=== PATIENT | male | born 1935 | race Caucasian/White ===

== ENCOUNTER 2020-08-02 12:12 | Outpatient (CLI) | payer MEDICARE, BC, SELFPAY ==
--- NOTE | ~2020-08-02 | US_ITS ---
EXAMINATION: US aorta DATE: 08/02/2020 13:25 CDT INDICATION: Abdominal aortic aneurysm without rupture TECHNIQUE: Grayscale, color Doppler, and pulsed Doppler images of the aorta and common iliac arteries were obtained. COMPARISON: No prior studies for comparison. . FINDINGS: The proximal aorta measures 2.2 cm greatest sagittal dimension. The mid aorta measures 4.4 cm greates t sagittal dimension. The distal aorta measures 1.9 cm greatest sagittal dimension. The right common internal iliac artery measures 1.3 cm. The left common iliac artery measures 1.5 cm. IMPRESSION: 1. Infrarenal abdominal aortic aneurysm measuring 4.4 cm greatest sagittal dimension. Reviewed, dictated and finalized at location A. IMPRESSION: 1. Infrarenal abdominal aortic aneurysm measuring 4.4 cm greatest sagittal dime nsion.
== END 2020-08-02 12:13 | disposition home or self-care (01) ==
LOC: ANHIMG 12:21
PROVIDERS: PCP Internal Medicine; Visit Provider Internal Medicine
DX: I71.4 Abdominal aortic aneurysm, without rupture (principal)
CPT/HCPCS: 76775

== ENCOUNTER 2021-10-10 15:38 | Outpatient (CLI) | payer MEDICARE, BC, SELFPAY ==
[2021-10-10 16:40] LABS: Basophils Absolute Auto 0.1 K/mm3 (0.0-0.1); Basophils Percent Auto 0.5 % (0.2-1.2); Eosinophils Absolute Auto 0.2 K/mm3 (0-0.3); Eosinophils Percent Auto 1.3 % (0-4.4); Hematocrit 46.4 % (42.0-52.0); Hemoglobin 15.4 g/dL (14.0-18.0); Immature Granulocyte Absolute 0.09 K/mm3 (0.00-0.031); Immature Granulocyte Percent A 0.8 % (0-0.5); Lymphocytes Absolute Auto 2.16 K/mm3 (0.9-3.2); Lymphocytes Percent Auto 19.1 % (18.3-44.2); Mean Corpuscular HGB Conc 33.2 g/dl (32-36); Mean Corpuscular Hemoglobin 32.6 pg (26-34); Mean Corpuscular Volume 98.3 fl (80-100); Mean Platelet Volume 8.8 fl (7.4-10.4); Monocytes Absolute Auto 1.4 K/mm3 (0.1-0.6); Monocytes Percent Auto 12.3 % (2.6-8.5); Neutrophils Absolute Auto 7.5 K/mm3 (1.3-6.7); Platelet Count Result 299 k/mm3 (150-375); Red Blood Count 4.72 M/mm3 (4.6-6.20); White Blood Count 11.3 K/mm3 (4.5-10.0)
[2021-10-10 16:53] LABS: Alanine Aminotransferase 21 U/L (4-50); Albumin Level 4.8 g/dL (3.5-5.1); Alkaline Phosphatase 100 U/L (38-126); Anion Gap 12 mmol/L (8-16); Aspartate Amino Transferase 27 U/L (17-59); Bilirubin,Total 1.5 mg/dL (0.2-1.3); Blood Urea Nitrogen 18 mg/dL (9-20); Calcium 9.5 mg/dL (8.4-10.2); Carbon Dioxide 25 mmol/L (22-30); Chloride 102 mmol/L (98-107); Cholesterol 139 mg/dL (0-200); Estimated Glomerular Filt Rate 58; Glucose 119 mg/dL (65-110); HDL Direct 31 mg/dL; Magnesium 1.8 mg/dL (1.6-2.3); Potassium 4.3 mmol/L (3.4-5.0); Sodium 139 mmol/L (137-145); Triglycerides 282 mg/dL (<150)
[2021-10-10 17:03] LABS: LDL Cholesterol Direct 67 mg/dL
[2021-10-10 17:59] LABS: Folic Acid > 20.0 ng/mL (2.76->20)
== END 2021-10-10 15:39 | disposition home or self-care (01) ==
PROVIDERS: PCP Internal Medicine; Visit Provider Internal Medicine
DX: M54.9 Dorsalgia, unspecified (principal); E78.5 Hyperlipidemia, unspecified; R53.83 Other fatigue; I10 Essential (primary) hypertension
CPT/HCPCS: 36415; 80053; 80061; 82607; 82746; 83735; 84443; 85025

== ENCOUNTER → 2021-10-23 13:57 | Outpatient (CLI) | payer MEDICARE, BC, SELFPAY ==
--- NOTE | ~2021-10-23 | XR_ITS ---
EXAMINATION: XR hip LT min 2V DATE: 10/23/2021 14:27 INDICATION: Left hip pain. TECHNIQUE: 2 views of left hip were obtained. COMPARISON: None. FINDINGS: Bone alignment is normal. No fracture. There is mild left hip osteoarthritis. IMPRESSION: 1. Mild left hip osteoarthritis. Reviewed, dictated and finalized at location A. OPERATOR
--- NOTE | ~2021-10-23 | XR_ITS ---
XR lumbar spine 2-3V 10/23/2021 14:27 Indication: Low back pain Procedure: 3 views lumbar spine Comparison: No prior studies for comparison. Findings: There is disc narrowing at all lumbar levels, most advanced at L4-5. No acute fracture, sub luxation or dislocation. No spondylolisthesis. There is multilevel facet hypertrophy, most advanced a t L5-S1. There is lower abdominal aortic aneurysm measuring up to 4.7 cm. Impression: 1: Moderate lumbar spondylosis. 2: Abdominal aortic aneurysm measuring up to 4.7 cm. Reviewed, dictated and finalized at location A. DING SUPERVISOR Impression: 1: Moderate lumbar spondylosis. 2: Abdominal aortic aneurysm measuring up to 4.7 cm.
--- NOTE | ~2021-10-23 | XR_ITS ---
EXAMINATION: XR chest 2V DATE: 10/23/2021 14:27 INDICATION: Cough. TECHNIQUE: Frontal and lateral views of the chest were obtained on 3 radiographs. COMPARISON: None. FINDINGS: The lungs are hyperexpanded with lucencies, consistent with emphysema. There is mild scarri ng at the lung apices. There are interstitial opacities in the upper lobes, likely chronic. No pleura l effusion or pneumothorax. The heart size is normal. There is a chronic compression fracture in mid thoracic spine. IMPRESSION: 1. Emphysema and mild scarring. Reviewed, dictated and finalized at location A. L LITIGATION ATTORNEY
== END ==
PROVIDERS: PCP Internal Medicine; Visit Provider Internal Medicine
DX: M47.896 Other spondylosis, lumbar region (principal); I71.4 Abdominal aortic aneurysm, without rupture; J43.9 Emphysema, unspecified; M16.12 Unilateral primary osteoarthritis, left hip
CPT/HCPCS: 71046; 72100; 73502

== ENCOUNTER 2021-11-13 10:34 | Outpatient (CLI) | payer MEDICARE, BC, SELFPAY ==
--- NOTE | ~2021-11-13 | US_ITS ---
EXAMINATION: US aorta EXAM DATE: 11/13/2021 11:20 INDICATION: I71.4 - Abdominal aortic aneurysm, without rupture AAA F/U. TECHNIQUE: Multiple grayscale and Doppler images of the aorta were obtained (by a technologist who pe rformed the scan) and subsequently reviewed. Comparison is made to prior examination from 08/02/2020. FINDINGS: The abdominal aorta measures 2.7 cm proximally,, 2.5 cm mid aspect, and dilates distally to 4.5 x 3.4 x 3.8 cm (previously reported 4.4 cm). No evidence of retroperitoneal lymphadenopathy. The iliac art eries are normal in caliber. IMPRESSION: Distal abdominal aortic aneurysm unchanged, maximal dimension today obtained at 4.5 cm. Reviewed, dictated and finalized at location A. T MGR
== END 2021-11-13 10:35 | disposition home or self-care (01) ==
LOC: ANHIMG 10:39
PROVIDERS: PCP Internal Medicine; Visit Provider Internal Medicine
DX: I71.4 Abdominal aortic aneurysm, without rupture (principal)
CPT/HCPCS: 76775

== ENCOUNTER 2021-11-14 12:36 | Outpatient (CLI) | payer MEDICARE, BC, SELFPAY ==
--- NOTE | 2021-11-18 15:35 | WPDPFTINT ---
PFT Procedure Performed PFT Procedure Performed Spirometry with Pre/Post Bronchodilator Plethysmography (Lung Vol) Diffusing Cap (DLCO) Flow Vol Loop PFT Interpretation DOS: 10/14/2022 REQUESTING: Dr Ward REASON FOR TESTING: Dyspnea on exertion PULMONARY FUNCTION TESTS Test results are reliable and reproducible. Spirometry: Pre-bronchodilator FEV1 is 79%, mildly decreased, 2.31 L. FVC is normal, 92%. The FEV1/FVC ration is reduced 62% consistent with mild airflow obstruction. THe [id number]% is 46% predicted. There is no significant change after bronchodilator administration. Lung volumes: Total lung capacity is normal, 92%. RV is 113%. RV/TLC is increased 47%, consistent with air trapping. Diffusion: DLCO is 55% which is moderately reduced. DLCO/VA is 73%, increased compared to DLCO however still mildly reduced. Flow volume loop: Scooping of the expiratory limb. IMPRESSION: Mild obstructive ventilatory defect with air trapping and moderate diffusion impairment. There is no significant response to bronchodilator. Lack of response to bronchodilator should not preclude use if clinically indicated. This pattern can be seen in emphysema. Kamila Holliday MD
== END 2021-11-14 12:37 | disposition home or self-care (01) ==
PROVIDERS: PCP Internal Medicine; Visit Provider Internal Medicine
DX: R06.00 Dyspnea, unspecified (principal)
CPT/HCPCS: 94060; 94726; 94729

== ENCOUNTER 2022-01-31 12:41 | Outpatient (CLI) | payer MEDICARE, BC, SELFPAY ==
[2022-01-31 12:50] VITALS: PULSE 81; O2SAT 97
[2022-01-31 12:55] VITALS: PULSE 106; O2SAT 95
[2022-01-31 13:10] VITALS: PULSE 84; O2SAT 97
--- NOTE | 2022-01-31 13:17 | HOMEO2EVAL ---
Evaluation was performed at [facility] Home Oxygen Evaluation RC: Home Oxygen (O2) Evaluation Start: 01/31/22 13:15 Freq: Status: Active Protocol: RPE Activity Type Activity Date Activity User E-Sign Co-Sign Detail Recorded Client Recorded Date Recorded By Document 01/31/22 12:50 DJO [id number] 01/31/22 13:17 DJO Document 01/31/22 12:55 DJO [id number] 01/31/22 13:17 DJO Document 01/31/22 13:10 [email or web address] [email or web address] 01/31/22 13:17 DJO 01/31/22 01/31/22 01/31/22 12:50 12:55 13:10 Home O2 Evaluation Test Phase Resting Exercise Resting Oxygen Delivery Room Air Room Air Room Air Pulse Oximetry (90-100 %) 97 95 97 Pulse Rate (60-100 beats/min) 81 106 H 84 Activity Tolerance Good Rating of Perceived Dyspnea (PD) +2 Mild, Some Difficulty, Noticeable to the Observer Ambulation Distance (feet) 1,000 Ambulation Distance (meters) 304.78 Treatment Charges O2 Evaluation - Outpatient
--- NOTE | 2022-01-31 13:56 | ECHO_ITS ---
Patient Info Name: Sanjay Mendez Age: 86 years : 1935 Gender: Male Ht: 73 in Wt: 198 lbs BSA: 2.16 m2 HR: 85 bpm BP: 140 / 82 mmHg Technical Quality: Fair Exam Date: 01/31/2022 2:10 PM Exam Location: [facility] Pulmonary Patient Status: Outpatient Admit Date: 01/31/2022 Staff Ordering Physician: Keshav Miller MD Health Promotion Coordinator: Alicia Ku RDCS Attending Provider: Keshav Miller MD Referring Physician: Paul OLIVIER; Exam Type: CA echo doppler color flow Study Info Indications - short of breath Complete two-dimensional, color flow and Doppler transthoracic echocardiogram is performed. Summary 1. Complete two-dimensional, color flow and Doppler transthoracic echocardiogram is performed. 2. Left ventricular chamber dimension is normal. 3. Left ventricular systolic function is normal, estimated at 55-60%. 4. There is mildly increased left ventricular wall thickness. 5. The left ventricular diastolic function is grade I diastolic dysfunction. 6. There is mild aortic valve sclerosis. 7. There is mild mitral valve regurgitation. 8. There is mild to moderate tricuspid valve regurgitation. 9. Mild pulmonary hypertension, estimated pulmonary arterial systolic pressure is 45 mmHg. 10. Small atheroma in anterior and posterior aortic root. Left Ventricle Tissue doppler is not performed. Left ventricular chamber dimension is normal. Left ventricular systolic function is normal, estimated at 55-60%. There is mildly increased left ventricular wall thickness. The left ventricular diastolic function is grade I diastolic dysfunction. Right Ventricle Right ventricular chamber dimension is normal. Right ventricular systolic function is normal. Left Atria Left atrial chamber dimension is normal. Right Atria Right atrial chamber dimension is normal. Aortic Valve The aortic valve is trileaflet. There is mild aortic valve sclerosis. There is no aortic valve stenosis. There is no aortic valve regurgitation. Pulmonic Valve There is no pulmonic regurgitation. Mitral Valve There is no mitral valve stenosis. There is mild mitral valve regurgitation. Tricuspid Valve The tricuspid valve leaflets are not well visualized. There is mild to moderate tricuspid valve regurgitation. Mild pulmonary hypertension, estimated pulmonary arterial systolic pressure is 45 mmHg. Pericardium/Pleural There is no pericardial effusion. Inferior Vena Cava Normal inferior vena cava with >50% collapse upon inspiration consistent with normal right atrial pressure, 5 mmHg. Aorta Small atheroma in anterior and posterior aortic root. The aortic root size at the sinus of Valsalva is normal. Left Ventricular Outflow Tract Name Value Normal LVOT 2D LVOT Diameter 2.1 cm LVOT Doppler LVOT Peak Gradient 6 mmHg LVOT Mean Gradient 3 mmHg LVOT VTI 25 cm LVOT VTI/AV VTI Ratio 0.9 LVOT Stroke Volume 87 ml LVOT CO 17.2 l/min
== END 2022-01-31 12:42 | disposition home or self-care (01) ==
LOC: ANHPFT 12:45
PROVIDERS: PCP Internal Medicine; Visit Provider Internal Medicine Pulmonary Disease
DX: R06.02 Shortness of breath (principal); J44.9 Chronic obstructive pulmonary disease, unspecified; I34.0 Nonrheumatic mitral (valve) insufficiency; I36.1 Nonrheumatic tricuspid (valve) insufficiency; I27.20 Pulmonary hypertension, unspecified; I70.0 Atherosclerosis of aorta
CPT/HCPCS: 93306; 94618

== ENCOUNTER 2023-04-26 13:07 | Outpatient (CLI) | payer MEDICARE, BC, SELFPAY ==
--- NOTE | 2023-04-26 | ECHO_ITS ---
Patient Info Name: Nikolay Mendez Age: 87 years : 1935 Gender: Male Ht: 71 in Wt: 178 lbs BSA: 2.02 m2 HR: 93 bpm BP: 116 / 93 mmHg Heart Rhythm: Atrial Fibrillation Technical Quality: Fair Exam Date: 04/26/2023 1:41 PM Exam Location: [facility] Pulmonary Patient Status: Outpatient Admit Date: 04/26/2023 Staff Ordering Physician: Keshav Mcmahon MD Manager Servicing: Ubaldo Denson RDCS Attending Provider: Keshav Mcmahon MD Referring Physician: Salome CORTEZ; Exam Type: CA echo doppler color flow Study Info Indications - unspecified A-fib Complete two-dimensional, color flow and Doppler transthoracic echocardiogram is performed. Summary 1. Complete two-dimensional, color flow and Doppler transthoracic echocardiogram is performed. 2. Left ventricular chamber dimension is normal. 3. Left ventricular systolic function is mildly reduced, estimated at 50-55%. 4. There is moderately increased left ventricular wall thickness. 5. The left ventricular diastolic function is indeterminate. 6. Left atrial chamber dimension is severely enlarged. 7. Right atrial chamber dimension is severely enlarged. 8. There is mild aortic valve stenosis with a peak velocity of 112 cm/s, mean gradient of 3 mmHg, and aortic valve area of 1.7 cm2. 9. There is mild aortic valve calcification. 10. The mitral valve has thickened leaflets and anterior prolapse. 11. There is moderate to severe mitral valve regurgitation. 12. There is moderate tricuspid valve regurgitation. 13. Mild pulmonary hypertension, estimated pulmonary arterial systolic pressure is 37 mmHg. 14. The pericardium appears increased echogenicity of the pericardium. 15. There is small pericardial effusion. Left Ventricle Left ventricular chamber dimension is normal. Left ventricular systolic function is mildly reduced, estimated at 50-55%. There is moderately increased left ventricular wall thickness. The left ventricular diastolic function is indeterminate. Right Ventricle Right ventricular chamber dimension is normal. Right ventricular systolic function is normal. Left Atria Left atrial chamber dimension is severely enlarged. Right Atria Right atrial chamber dimension is severely enlarged. Atrial Septum Intact interatrial septum visualized by color flow imaging. Aortic Valve The aortic valve is trileaflet. There is mild aortic valve stenosis with a peak velocity of 112 cm/s, mean gradient of 3 mmHg, and aortic valve area of 1.7 cm2. There is trace aortic valve regurgitation. There is mild aortic valve calcification. Pulmonic Valve The pulmonic valve is normal. There is no pulmonic valve stenosis. There is trace pulmonic regurgitation. Mitral Valve The mitral valve has thickened leaflets and anterior prolapse. There is no mitral valve stenosis. There is moderate to severe mitral valve regurgitation. Tricuspid Valve The tricuspid valve leaflets are normal. There is no significant tricuspid valve stenosis. There is moderate tricuspid valve regurgitation. Mild pulmonary hypertension, estimated pulmonary arterial systolic pressure is 37 mmHg. Pericardium/Pleural The pericardium appears increased echogenicity of the pericardium. There is small pericardial effusion. Inferior Vena Cava Dilated inferior vena cava with <50% collapse upon inspiration consistent with elevated right atrial pressure, 15 mmHg. Aorta The aortic root size at the sinus of Valsalva is mildly dilated. Left Ventricular Outflow Tract
== END 2023-04-26 13:08 | disposition home or self-care (01) ==
LOC: ANHCARD 13:08
PROVIDERS: PCP Internal Medicine; Visit Provider Specialist
DX: I48.91 Unspecified atrial fibrillation (principal); I08.3 Combined rheumatic disorders of mitral, aortic and tricuspid valves
CPT/HCPCS: 93306

== ENCOUNTER 2024-04-25 09:35 | Emergency (ER) | payer MEDICARE, BC, SELFPAY ==
--- NOTE | ~2024-04-25 | CT_ITS ---
EXAMINATION: CT brain wo con DATE: 04/25/2024 10:53 INDICATION: Head injury TECHNIQUE: Computed tomography (CT) of the head was performed without intravenous contrast. Sagittal and coronal reconstructions were performed. The mA was adjusted according to patient size. Iterative reconstruction technique was employed. The dose-length product was 605.33 mGy-cm. COMPARISON: None FINDINGS: Small left frontal scalp hematoma. No fracture. No acute intracranial hemorrhage, acute infarction or abnormal extra axial fluid collection. Small old lacunar infarct at the anterior limb of the left in ternal capsule. There is mild scattered white matter hypoattenuation consistent with chronic small ve ssel ischemic disease. Symmetric prominence of the sulci consistent with mild to moderate age-appropr iate diffuse cerebral volume loss. Ventricles are normal and symmetric. No mass/mass effect. The orb its, paranasal sinuses and mastoid air cells are normal. IMPRESSION: 1. No fracture or acute intracranial process. 2. 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 3. Age-related changes including mild to moderate diffuse volume loss and mild scattered white matter hypoattenuation consistent with chronic small vessel ischemic disease. Reviewed, dictated and finalized at location A. IMPRESSION: 1. No fracture or acute intracranial process. 2. 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 3. Age-related changes including mild to moderate diffuse volume loss and mild scattered white matter hypoattenuation consistent with chronic small vessel isc hemic disease.
[2024-04-25 09:40] VITALS: BP 104/64; PULSE 76; RESP 18; TEMP 36.9; O2SAT 98
--- NOTE | 2024-04-25 10:21 | ED.FALL ---
HPI - Fall General Chief Complaint: Fall Stated Complaint: fall Time Seen by Provider: 04/25/24 09:42 History of Present Illness HPI Narrative: 88-year-old male present to the emergency department for evaluation after having a ground level fall while trying to situated self in the bathroom. Patient states he stumbled while trying to get position on the toilet struck his head. Patient also has a skin tear to his left elbow. Other than his head patient denies any acute pain or injury. Related Data Allergies Allergy/AdvReac Type Severity Reaction Status Date / Time Penicillins Allergy Mild unkown Verified 04/25/24 09:47 peanut Allergy Unknown unkown Verified 04/25/24 09:47 Review of Systems Review of Systems: All systems reviewed & are unremarkable except as noted in HPI and below PMFSH Past Medical History Medical History Abdominal aneurysm Allergies Arthritis IBS (irritable bowel syndrome) Surgical History Surgical History History of prostate surgery Family History Family History Father Cancer Mother Hypertension Social History Social History Smoking status: Former smoker Second hand tobacco smoke exposure: No Alcohol intake: current Substance use: unknown Exam Narrative: APPEARANCE: Well appearing, no pain, no distress, well-nourished. HEAD: normocephalic, left-sided abrasion to forehead. EYES: PERRLA/EOMI, conjunctivae clear. NOSE: Normal no drainage EARS:TMS clear with good light reflex. THROAT: Pharynx clear, no exudate. NECK: Supple. No adenopathy, no masses. RESPIRATORY: Airway patent, respirations nonlabored. Clear to auscultation bilaterally, no rales, rhonchi, wheezing. CARDIOVASCULAR: Regular rate and rhythm without murmurs rubs or gallops. ABDOMINAL: Soft, nontender, nondistended, normal bowel sounds MUSCULOSKELETAL: Moves all extremities. Strength/ROM intact, No edema, No calf tenderness. NEURO: Alert. Cranial nerves II through XII intact. Good gait. Good coordination SKIN: Skin tear to left elbow Course Vital Signs Vital signs: Vital Signs Temperature 98.4 F 04/25/24 09:40 Pulse Rate 76 04/25/24 09:40 Respiratory Rate 18 04/25/24 09:40 Blood Pressure 104/64 04/25/24 09:40 Pulse Oximetry 98 04/25/24 09:40 Temperature 98.4 F 04/25/24 09:40 Pulse Rate 76 04/25/24 09:40 Respiratory Rate 18 04/25/24 09:40 Blood Pressure 104/64 04/25/24 09:40 Pulse Oximetry 98 04/25/24 09:40 MDM - Fall MDM Narrative Medical decision making narrative: 88-year-old male presents to the emergency department for evaluation after having a ground level fall. Patient does have a superficial laceration/abrasion to the left forehead, no suture repair needed. Patient also has skin tear to the left elbow. Head CT was negative for acute intracranial abnormality. Patient denies an a other pain or injury from the fall. Differential Diagnosis Differential diagnosis: Likely other Imaging Data Radiologist's impression: Impressions Head CT 04/25/24 10:55 IMPRESSION: 1. No fracture or acute intracranial process. 2. 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 3. Age-related changes including mild to moderate diffuse volume loss and mild scattered white matter hypoattenuation consistent with chronic small vessel ischemic disease. Discharge Plan Discharge Clinical Impression: Head injury, Skin tear, Abrasion Patient Disposition: Home, Self-Care Condition: Stable Instructions: Antibiotic Form, Head Injury (ED), Abrasion (ED) Additional Instructions: Wound care as directed. Have close follow-up with your primary care physician. Prescriptions: No Action fluticasone propion-salmeterol
== END 2024-04-25 11:56 ==
PROVIDERS: Emergency Provider Emergency Medicine; PCP Internal Medicine
DX: S00.81XA Abrasion of other part of head, initial encounter (principal); S51.012A Laceration without foreign body of left elbow, initial encounter; K58.9 Irritable bowel syndrome, unspecified; M19.90 Unspecified osteoarthritis, unspecified site; Z87.891 Personal history of nicotine dependence; W18.12XA Fall from or off toilet with subsequent striking against object, initial encounter
CPT/HCPCS: 70450; 99284

== ENCOUNTER 2024-07-25 17:41 | Inpatient (IN) | payer MEDICARE, BC, SELFPAY ==
--- NOTE | ~2024-07-25 | XR_ITS ---
XR chest 1V portable Ordering provider: Yobany Chery MD History: 89 years Male with . palpitations, weakness . Comparison: October 23, 2021 FINDINGS: MEDIASTINUM: The cardiac silhouette is slightly enlarged. LUNGS: No infiltrates, effusions or pneumothorax. Prominent bronchovascular markings in the left lower lobe with haziness suggestive of atelectasis sal anum pneumonia. Underlying fibrotic changes OTHER: No free air under the diaphragm. Degenerative spine. IMPRESSION: Prominent markings in the left lower lobe with loss of silhouette of the left hemidiaphragm suggestiv e of atelectasis versus pneumonia. Follow-up advised Reviewed, dictated and finalized at location A. IMPRESSION: Prominent markings in the left lower lobe with loss of silhouette of the left h emidiaphragm suggestive of atelectasis versus pneumonia. Follow-up advised
[2024-07-25 17:44] VITALS: BP 156/83; PULSE 44; RESP 13; TEMP 36.4; O2SAT 93
--- NOTE | 2024-07-25 17:56 | ECG_ITS ---
Test Date: 2024-07-25 18:03:41 Measurements Intervals [place] Rate: 46 P: 82 MT: 209 QRS: 235 QRSD: 89 T: 88 QT: 460 QTc: 406 Interpretive Statements SINUS BRADYCARDIA WITH FIRST DEGREE AV BLOCK POSSIBLE LEFT ATRIAL ENLARGEMENT LOW QRS VOLTAGE IN LIMB LEADS ANTEROSEPTAL MYOCARDIAL INFARCTION , OF INDETERMINATE AGE BASELINE WANDER- III, V4 ABNORMAL ECG No previous ECG available for comparison Electronically Signed On 07-25-2024 19:59:31 CDT by Nhaum Monahan D.O.
--- NOTE | 2024-07-25 17:57 | ED.GENADULT ---
HPI - General Adult General Chief complaint: Unspecified Stated complaint: bradycardic Time Seen by Provider: 07/25/24 17:51 History of Present Illness HPI narrative: Patient is an 89-year-old male who presents ER with abnormal heart rate. Patient reports he was sitting at his nursing facility when they were doing vitals and found that his heart was low. He thinks he had a brief episode of shortness of breath earlier today but it passed. Does not feel lightheaded or weak. No chest pain. Patient does however look a bit fatigued and pale. Patient is on amiodarone as well as Lasix. Related Data Allergies Allergy/AdvReac Type Severity Reaction Status Date / Time Penicillins Allergy Mild unkown Verified 04/25/24 09:47 peanut Allergy Unknown unkown Verified 04/25/24 09:47 Review of Systems Review of Systems: All systems reviewed & are unremarkable except as noted in HPI and below Constitutional: Constitutional: Denies chills, Denies fever(s) and Reports weakness ENT: Reports system reviewed and no additional complaints, except as documented Cardiovascular: Cardiovascular: Reports no additional cardiovascular complaints Gastrointestinal: Gastrointestinal: Reports no additional gastrointestinal complaints [facility] Past Medical History Medical History Abdominal aneurysm Allergies Arthritis IBS (irritable bowel syndrome) Surgical History Surgical History History of prostate surgery Family History Family History Father Cancer Mother Hypertension Social History Social History Smoking status: Former smoker Second hand tobacco smoke exposure: No Alcohol intake: current Substance use: unknown Exam Narrative: GENERAL: Chronically ill and fatigued-appearing, well-nourished, and in no acute distress. HEAD: Normocephalic, atraumatic. EYES: PERRL and EOMI. Normal conjunctiva. ENT: Mucous membranes moist. CHEST: Clear to auscultation. No respiratory distress. HEART: Bradycardic and regular. Normal peripheral pulses. ABDOMEN: Soft, nontender, nondistended. EXTREMITIES: Normal range of motion. No edema. SKIN: Warm, dry, no rash. NEURO: Alert and oriented x3. PSYCH: Normal mood and affect. Course Vital Signs Vital signs: Vital Signs Temperature 36.4 C L 07/25/24 17:44 Pulse Rate 44 L 07/25/24 17:44 Respiratory Rate 13 07/25/24 17:44 Blood Pressure 156/83 H 07/25/24 17:44 Pulse Oximetry 93 07/25/24 17:44 Oxygen Delivery Room Air 07/25/24 17:44 Temperature 36.4 C L 07/25/24 17:44 Pulse Rate 44 L 07/25/24 17:44 Respiratory Rate 13 07/25/24 17:44 Blood Pressure 156/83 H 07/25/24 17:44 Pulse Oximetry 93 07/25/24 17:44 Oxygen Delivery Room Air 07/25/24 17:44 Medical Decision Making Vital Signs Vital Signs: Vital Signs Temperature 36.4 C L 07/25/24 17:44 Pulse Rate 44 L 07/25/24 17:44 Respiratory Rate 13 07/25/24 17:44 Blood Pressure 156/83 H 07/25/24 17:44 Pulse Oximetry 93 07/25/24 17:44 Oxygen Delivery Room Air 07/25/24 17:44 Temperature 36.4 C L 07/25/24 17:44 Pulse Rate 44 L 07/25/24 17:44 Respiratory Rate 13 07/25/24 17:44 Blood Pressure 156/83 H 07/25/24 17:44 Pulse Oximetry 93 07/25/24 17:44 Oxygen Delivery Room Air 07/25/24 17:44 Lab Data 07/25/24 18:28 07/25/24 18:28 Labs: Lab Results 07/25/24 Range/Units 18:28 WBC 9.0 (4.5-10.0) K/mm3 RBC 3.44 L (4.6-6.20) M/mm3 Hgb 11.7 L D (14.0-18.0) g/dL Hct 36.8 L (42.0-52.0) % MCV 107.0 H (80-100) fl MCH 34.0 (26-34) pg MCHC 31.8 L (32-36) g/dl RDW 14.9 H (11.5-14.5) % Plt Count 297 (150-375) k/mm3 MPV 8.9 (7.4-10.4) fl Immature Gran % (Auto) 1.4 H (0-0.5) % Neut % (Auto
[2024-07-25 18:38] LABS: Basophils Percent Auto 0.4 % (0.2-1.2); Eosinophils Absolute Auto 0.1 K/mm3 (0-0.3); Eosinophils Percent Auto 1.3 % (0-4.4); Hematocrit 36.8 % (42.0-52.0); Hemoglobin 11.7 g/dL (14.0-18.0); Immature Granulocyte Absolute 0.13 K/mm3 (0.00-0.031); Immature Granulocyte Percent A 1.4 % (0-0.5); Lymphocytes Absolute Auto 0.68 K/mm3 (0.9-3.2); Lymphocytes Percent Auto 7.5 % (18.3-44.2); Mean Corpuscular HGB Conc 31.8 g/dl (32-36); Mean Platelet Volume 8.9 fl (7.4-10.4); Monocytes Absolute Auto 1.4 K/mm3 (0.1-0.6); Monocytes Percent Auto 15.3 % (2.6-8.5); Neutrophils Absolute Auto 6.7 K/mm3 (1.3-6.7); Neutrophils Percent Auto 74.1 % (45.5-73.1); Platelet Count Result 297 k/mm3 (150-375); Red Blood Count 3.44 M/mm3 (4.6-6.20); Red Cell Distribution Width 14.9 % (11.5-14.5)
[2024-07-25 18:58] LABS: INR 2.6; Prothrombin Time 28.8 Seconds (11.1-14.7)
[2024-07-25 18:59] LABS: Alanine Aminotransferase 17 U/L (6-50); Albumin Level 3.4 g/dL (3.5-5.1); Alkaline Phosphatase 155 U/L (38-126); Anion Gap 10 mmol/L (4-12); Aspartate Amino Transferase 29 U/L (17-59); Bilirubin,Total 1.6 mg/dL (0.2-1.3); Blood Urea Nitrogen 33 mg/dL (9-20); Calcium 8.6 mg/dL (8.4-10.2); Carbon Dioxide 26 mmol/L (22-30); Chloride 103 mmol/L (98-107); Estimated CRCL calculation 36 ml/min; Estimated Glomerular Filt Rate 57; Glucose 110 mg/dL (65-110); Partial Thromboplastin Time 43.4 Seconds (22.3-36.8); Potassium 4.2 mmol/L (3.4-5.0); Sodium 139 mmol/L (137-145)
[2024-07-25 19:05] LABS: NT Pro B Type Natriuretic Pept 15800 pg/mL (19.9-100)
[2024-07-25 19:09] LABS: Troponin I 0.014 ng/mL (0.000-0.034)
--- NOTE | 2024-07-25 20:34 | PM.IMHP ---
H&P: HPI History of Present Illness Date/Time: 07/25/24 20:34 Chief Complaint: Bradycardia/weakness Narrative: Mr. Mendez, residing from [facility], presents with bradycardia/weakness. He has a past medical history prior tobacco abuse, COPD maintained on Spiriva and albuterol p.r.n.. Upon arrival to [place] ER he was found to be in sinus bradycardia. He maintained in the high 40s. No acute ischemia, troponin negative. Blood pressure 156/83, O2 sat 93% on room air. White blood cell count 9.0, INR 2.6, BUN 33, serum creatinine 1.2, BNP 72631, alkaline phosphatase 155. Chest x-ray demonstrating infiltrate versus atelectasis at the left lower lobe. It appears the patient was prescribed Eliquis, fexofenadine, furosemide, lisinopril, metoprolol, ramelteon, trazodone, amiodarone, acetaminophen all on 04/08/2024. There is however no indication chart documentation of the patient has atrial fibrillation. He was given 500 cc normal saline bolus in the ER. Patient has no complaints other than he feels he has felt weak for about a week. Review of Systems Review of Systems: All systems reviewed & are unremarkable except as noted in HPI and below (Subjective) PMFSH Past Medical History Medical History Abdominal aneurysm Allergies Arthritis IBS (irritable bowel syndrome) Surgical History Surgical History History of prostate surgery Family History Family History Father Cancer Mother Hypertension Social History Social History Smoking status: Former smoker Second hand tobacco smoke exposure: No Alcohol intake: current Substance use: unknown Meds Home Medications and Allergies Home Medications Medication Instructions Recorded Confirmed Type Spiriva with HandiHaler 18 mcg and 1 cap inhalation DAILY #30 caps 09/25/23 04/01/24 Rx inhalation capsules (tiotropium bromide) albuterol sulfate 90 mcg/actuation 1 - 2 inh inhalation Q4-6H PRN 09/25/23 04/01/24 Rx aerosol inhaler shortness of breath or wheezing #8.5 grams fluticasone 250 mcg-salmeterol 50 1 inh inhalation BID #60 ea 09/25/23 04/01/24 Rx mcg/dose blistr powdr for inhalation (Nevaxela Inhub) amiodarone 400 mg tablet mg 07/25/24 History amiodarone 400 mg tablet mg 07/25/24 History apixaban 5 mg tablet (Eliquis) mg 07/25/24 History furosemide 20 mg tablet mg 07/25/24 History lisinopril 10 mg tablet mg 07/25/24 History metoprolol succinate 100 mg mg PO 07/25/24 History tablet,extended release 24 hr ramelteon 8 mg tablet mg PO 07/25/24 History trazodone 50 mg tablet mg 07/25/24 History Allergies Allergy/AdvReac Type Severity Reaction Status Date / Time Penicillins Allergy Mild unkown Verified 04/25/24 09:47 peanut Allergy Unknown unkown Verified 04/25/24 09:47 Vital Signs Vital Signs - 24 hr 07/25/24 17:44 Temperature 97.5 F L Pulse Rate 44 L Respiratory Rate 13 Blood Pressure 156/83 H Pulse Oximetry 93 Oxygen Delivery Room Air Exam Const: General: comfortable and no acute distress Other: A&O x3 Eyes: Pupils: Equal, round and reactive pupils present Neck: Neck: supple Resp: Effort & Inspection: normal respiratory effort Auscultation: clear to auscultation bilaterally Cardio: Rate: bradycardic Rhythm: regular rhythm GI: GI Palp: Yes Soft to palpation and No Tenderness to palpation present (GI) Extrem: General: no edema H&P: Results Labs Labs: Short CBC 07/25/24 Range/Units 18:28 WBC 9.0 (4.5-10.0) K/mm3 Hgb 11.7 L D (14.0-18.0) g/dL Hct 36.8 L (42.0-52.0) % Plt Count 297 (150-375) k/mm3 BMP 07/25/24 18:28 Sodium 139 Potassium 4.2 Chloride 103 Carbon Dioxide 26 BUN 33 H D Creatinine 1.20 Glucose 110 Calcium
[2024-07-25 20:54] VITALS: PULSE 59; RESP 16; O2SAT 99
[2024-07-25 21:05] VITALS: BP 168/82; PULSE 51; RESP 20; TEMP 36.5; O2SAT 93; BMI 18.8
[2024-07-25 21:14] VITALS: PULSE 52
--- NOTE | 2024-07-25 21:15 | ADMGEN ---
This patient, Nikolay Mendez, was admitted to IMU Room 231-01. Patient/family oriented to hospital policies and general routines including ID bracelet, bed and alarms, visiting hours, pain management, procedures, bathroom and other care routines, personal items, smoking policy, room service/diet, and visiting hours. Information on how to activate the Rapid Response Team has been discussed. Patient/Family are encouraged to report perceived risks to care and to ask questions if they do not understand what they are told or what they should do. Patient arrived to the unit at 2103.
--- NOTE | 2024-07-25 21:16 | PC.NURSE ---
ED called IMU to give report for the patient going to room 231. At 2051, this RN received report for the patient.
--- NOTE | 2024-07-25 21:38 | ADMGEN ---
This patient, Nikolay Mendez, was admitted to IMU Room 231-01. Patient/family oriented to hospital policies and general routines including ID bracelet, bed and alarms, visiting hours, pain management, procedures, bathroom and other care routines, personal items, smoking policy, room service/diet, and visiting hours. Information on how to activate the Rapid Response Team has been discussed. Patient/Family are encouraged to report perceived risks to care and to ask questions if they do not understand what they are told or what they should do. Patient states he does not wish to be resuscitated, however, does not present with an active DNR. Unable to specify POA. Unknown if patient has an advanced directive. Home medications identified per list from Misty Rogers at [facility].
[2024-07-25 22:00] VITALS: PULSE 47
[2024-07-25 23:34] VITALS: BP 147/74; PULSE 54; RESP 20; TEMP 36.4; O2SAT 99
[2024-07-26] VITALS (12 sets, daily range): BP systolic 140–165; BP diastolic 65–82; PULSE 46–54; RESP 20; TEMP 36–36.6; O2SAT 92–95; BMI 18.8
--- NOTE | 2024-07-26 | ECHO_ITS ---
Patient Info Name: Nikolay Mendez Age: 89 years : 1935 Gender: Male Ht: 74 in Wt: 147 lbs BSA: 1.85 m2 HR: 54 bpm BP: 142 / 65 mmHg Technical Quality: Poor Exam Date: 07/26/2024 3:12 PM Exam Location: Echo Lab Patient Status: Inpatient Admit Date: 07/26/2024 Staff Ordering Physician: Nahum Monahan DO Import/Export Clerk: Lissett Mota RDCS Attending Provider: William Saini MD Referring Physician: Hero MARINO; Exam Type: CA echo doppler color flow Study Info Indications R00.1 - Bradycardia, unspecified R53.1 - Weakness Complete two-dimensional, color flow and Doppler transthoracic echocardiogram is performed. Reason for Poor Study: patient body habitus Summary 1. Complete two-dimensional, color flow and Doppler transthoracic echocardiogram is performed. 2. Left ventricular chamber dimension is normal. 3. Left ventricular systolic function is normal, estimated at 60-65%. 4. The left ventricular diastolic function is abnormal. 5. E/e' 12 is mildly elevated. 6. Left atrial chamber dimension is moderately enlarged. 7. Right atrial chamber dimension is moderately enlarged. 8. There is mild aortic valve sclerosis. 9. There is mild aortic valve regurgitation. 10. There is mild mitral valve regurgitation. 11. There is severe tricuspid valve regurgitation. 12. Mild pulmonary hypertension, estimated pulmonary arterial systolic pressure is 40 mmHg. Left Ventricle E/e' 12 is mildly elevated. Left ventricular chamber dimension is normal. Left ventricular systolic function is normal, estimated at 60-65%. The left ventricular diastolic function is abnormal. Right Ventricle Right ventricular systolic function is normal and with normal TAPSE 2.1 cm. Right ventricular chamber dimension is normal. Left Atria Left atrial chamber dimension is moderately enlarged. Right Atria Right atrial chamber dimension is moderately enlarged. Aortic Valve The aortic valve is trileaflet. There is mild aortic valve sclerosis. There is no aortic valve stenosis. There is mild aortic valve regurgitation. Pulmonic Valve There is no pulmonic regurgitation. Mitral Valve There is no mitral valve stenosis. There is mild mitral valve regurgitation. Tricuspid Valve There is severe tricuspid valve regurgitation. Mild pulmonary hypertension, estimated pulmonary arterial systolic pressure is 40 mmHg. Pericardium/Pleural There is no pericardial effusion. Inferior Vena Cava Normal inferior vena cava with >50% collapse upon inspiration consistent with normal right atrial pressure, 5 mmHg. Aorta The aortic root size at the sinus of Valsalva is normal. Left Ventricular Outflow Tract Name Value Normal LVOT 2D LVOT Diameter 2.0 cm LVOT Doppler LVOT Peak Gradient 4 mmHg LVOT Mean Gradient 1 mmHg LVOT VTI 20 cm LVOT VTI/AV VTI Ratio 0.3 LVOT Stroke Volume 63 ml LVOT CO 3.4 l/min LVOT CI 1.9 l/min/m2 Pulmonic Valve Hair
[2024-07-26 07:06] LABS: Glucose Point of Care 98 mg/dl (65-105)
[2024-07-26] MEDS: lisinopriL 10 MG TABLET PO (09:09)
[2024-07-26] MEDS: LORATADINE 10 MG TABLET PO (09:09)
[2024-07-26] MEDS: FUROSEMIDE 20 MG TABLET PO ×2 (09:10→17:05)
[2024-07-26] MEDS: APIXABAN 5 MG TABLET PO ×2 (09:10→21:41)
[2024-07-26] MEDS: DICYCLOMINE HCL 10 MG CAPSULE PO ×4 (09:33→21:41)
--- NOTE | 2024-07-26 12:48 | PM.IMPN ---
Progress Note: A&P Assessment and Plan (1) Bradycardia: Code(s): R00.1 - Bradycardia, unspecified Status: Acute (2) COPD (chronic obstructive pulmonary disease): Code(s): J44.9 - Chronic obstructive pulmonary disease, unspecified Status: Acute Plan Mr. Mendez, residing from [facility], presents with bradycardia/weakness. He has a past medical history prior tobacco abuse, COPD maintained on Spiriva and albuterol p.r.n.. Upon arrival to [place] ER he was found to be in sinus bradycardia. He maintained in the high 40s. No acute ischemia, troponin negative. Blood pressure 156/83, O2 sat 93% on room air. White blood cell count 9.0, INR 2.6, BUN 33, serum creatinine 1.2, BNP 05233, alkaline phosphatase 155. Chest x-ray demonstrating infiltrate versus atelectasis at the left lower lobe. It appears the patient was prescribed Eliquis, fexofenadine, furosemide, lisinopril, metoprolol, ramelteon, trazodone, amiodarone, acetaminophen all on 04/08/2024. There is however no indication chart documentation of the patient has atrial fibrillation. He was given 500 cc normal saline bolus in the ER. Patient has no complaints other than he feels he has felt weak for about a week. ----- # 1st Degree AV Block 2/2 medication vs underlying cardiology pathology -Hold Metoprolol and Amiodarone -Not sure Amiodarone 400 mg loading dose was continued mistakenly -Continue Eliquis 5 mg p.o. b.i.d. until Cardiology evaluation -cardiology consulted and will follow recs Subjective Date/time seen: 07/26/24 12:48 Interval history: Patient was evaluated at the bedside. Patient is a poor historian. Called Mr. Guzman who is the POA. He denies his uncle having AFib but at the same time he was not sure about it. He also believes he really never had any surgeries before but reports patient is declining past few months. We called the pharmacy in regards to his medication. Pharmacist reports new prescription for amiodarone has been started from April but they can not say for sure when it has been originally started. I believe patient would have received a loading dose of amiodarone 400mg and continued mistakenly. Patient was previously getting metoprolol 50 mg p.o. q.d. last year but for unknown reason it has has been increased to 100 p.o. q.d. from May 2024. Patient has been seen by Dr Malik Verma. Patient is also on Eliquis 5 mg p.o. b.i.d. Currently patient was admitted due to the bradycardia and his metoprolol and amiodarone has been held. EKG shows first-degree block. Pending cardiology evaluation Review of Systems Review of Systems: All systems reviewed & are unremarkable except as noted in HPI and below (Subjective) Exam Const: General: comfortable and no acute distress Other: A&O x3 Eyes: Pupils: Equal, round and reactive pupils present Neck: Neck: supple Resp: Effort & Inspection: normal respiratory effort Auscultation: clear to auscultation bilaterally Cardio: Rate: bradycardic Rhythm: regular rhythm Neuro: Cranial nerves: Yes Equal, round and reactive pupils present Extrem: General: no edema Objective Data Vital Signs Vital Signs: Vital Signs - 24 hr 07/25/24 17:44 07/25/24 20:54 07/25/24 21:05 Temperature 97.5 F L 97.7 F Pulse Rate 44 L 59 L 51 L Respiratory Rate 13 16 20 Blood Pressure 156/83 H 168/82 H Pulse Oximetry 93 99 93 Oxygen Delivery Room Air Fraction of Inspired Oxygen 07/25/24 21:14 07/25/24 22:00 07/25/24 23:34 Temperature 97.6 F Pulse Rate 52 L 47 L 54 L Respiratory Rate 20 Blood Pressure 147/74 H Pulse Oximetry 99 Oxygen Delivery Fraction of Inspired Oxygen 07/26/24 00:00 07/26/24 02:00 07/26/24 03:03 Temperature 97.6 F Pulse Rate 46 L 51 L 50 L Respiratory Rate 20 Blood Pressure 165/82 H Pulse Oximetry 95 Oxygen Delivery Fraction of Inspired Oxygen 07/26/24 04:00 07/26/24 06:00 07/26/24 06
--- NOTE | 2024-07-26 16:19 | PM.CNCAR ---
Assessment and Plan Assessment and plan (1) Essential hypertension: Code(s): I10 - Essential (primary) hypertension Status: Acute Assessment and Plan: Stable. (2) Bradycardia: Code(s): R00.1 - Bradycardia, unspecified Status: Acute Assessment and Plan: Probably due to medication including Metoprolol and Amiodarone. Stop both medication and monitor HR. Continue Eliquis in case he has PAF. Obtain echo. If HR and BP are OK, may d/c home tomorrow. History of Present Illness History of Present Illness Consult date/time: 07/26/24 16:19 Reason For Visit: Bradycardia Narrative: 89 yr old man presents to ER with weakness. He is very hard of hearing. He has history of hypertension, COPD, possibly PAF (based on medication including Amiodarone and Eliquis). He resides at [facility] and it was noted his HR was in 40's bpm so he was sent in. He denies having any symptoms of dizziness, sob, weakness. He can walk where he resides without any problems. Denies chest pain, palpitations. He is not familiar with the term atrial fibrillation. Review of Systems Review of Systems: All systems reviewed & are unremarkable except as noted in HPI and below Constitutional: Constitutional: Reports as per HPI, Denies chills and Denies fever(s) Cardiovascular: Cardiovascular: Reports as per HPI, Denies chest pain and Denies irregular heart rhythm Respiratory: Respiratory: Reports as per HPI and Denies dyspnea Gastrointestinal: Gastrointestinal: Reports as per HPI and Denies abdominal pain Genitourinary: Genitourinary: Reports as per HPI and Denies dysuria Musculoskeletal: Musculoskeletal: Reports as per HPI Neurologic: Reports as per HPI, Denies dizziness and Denies syncope [facility] Past Medical History Medical History Abdominal aneurysm Allergies Arthritis IBS (irritable bowel syndrome) Surgical History Surgical History History of prostate surgery Family History Family History Father Cancer Mother Hypertension Social History Social History Smoking packs per day: 2 Smoking cigarettes per day: 40.0 Years smoked: 60 Smoking pack-years: 120.00 Smoking status: Former smoker Tobacco type: cigarettes Second hand tobacco smoke exposure: No Alcohol intake: current Substance use: unknown Substance use type: does not use Do You Feel Safe in your Home?: Yes Lack of Transportation: No Lack of Food: Never True Current Housing: I Have Housing Concerned About Future Housing: No Difficulty Paying Gas/Electric Bills: No Difficulty Paying for Meds: No Currently Unemployed: No Education: High School Diploma/GED Difficulty w/ Childcare or Family Care: No Spiritual care concerns: No Meds Home Medications and Allergies Home Medications Medication Instructions Recorded Confirmed Type acetaminophen 325 mg tablet 650 mg PO Q8H chronic pain 07/25/24 07/25/24 History amiodarone 400 mg tablet 400 mg PO BID 07/25/24 07/25/24 History apixaban 5 mg tablet (Eliquis) 5 mg PO BID 07/25/24 07/25/24 History dicyclomine 10 mg capsule 10 mg PO QID 07/25/24 07/25/24 History fexofenadine 60 mg tablet 30 mg PO DAILY 07/25/24 07/25/24 History furosemide 20 mg tablet 20 mg PO BID 07/25/24 07/25/24 History lisinopril 10 mg tablet 10 mg PO DAILY 07/25/24 07/25/24 History metoprolol succinate 100 mg 100 mg PO HS 07/25/24 07/25/24 History tablet,extended release 24 hr ramelteon 8 mg tablet 8 mg PO HS 07/25/24 07/25/24 History trazodone 50 mg tablet 50 mg PO HS 07/25/24 07/25/24 History Allergies Allergy/AdvReac Type Severity Reaction Status Date / Time Penicillins Allergy Mild unkown Verified 07/25/24 21:30 peanut Allergy Unknown unkown Verified 07/25/24 21:3
[2024-07-26] MEDS: traZODone HCL 50 MG TABLET PO (21:41)
[2024-07-27] VITALS (10 sets, daily range): BP systolic 133–144; BP diastolic 63–75; PULSE 52–92; RESP 17–24; TEMP 36.4–36.7; O2SAT 94–100
[2024-07-27 05:14] LABS: Hematocrit 40.6 % (42.0-52.0); Mean Corpuscular Hemoglobin 33.6 pg (26-34); Mean Corpuscular Volume 104.9 fl (80-100); Mean Platelet Volume 8.4 fl (7.4-10.4); Platelet Count Result 310 k/mm3 (150-375); Red Blood Count 3.87 M/mm3 (4.6-6.20); White Blood Count 8.9 K/mm3 (4.5-10.0)
[2024-07-27 05:29] LABS: Alanine Aminotransferase 17 U/L (6-50); Albumin Level 3.5 g/dL (3.5-5.1); Alkaline Phosphatase 162 U/L (38-126); Anion Gap 11 mmol/L (4-12); Aspartate Amino Transferase 30 U/L (17-59); Bilirubin,Total 1.9 mg/dL (0.2-1.3); Blood Urea Nitrogen 23 mg/dL (9-20); Calcium 8.4 mg/dL (8.4-10.2); Carbon Dioxide 30 mmol/L (22-30); Chloride 100 mmol/L (98-107); Estimated CRCL calculation 41 ml/min; Estimated Glomerular Filt Rate > 60; Glucose 105 mg/dL (65-110); Potassium 3.4 mmol/L (3.4-5.0); Sodium 141 mmol/L (137-145)
--- NOTE | 2024-07-27 07:52 | PM.PNCARD ---
Progress Note: A&P Assessment and Plan (1) Essential hypertension: Code(s): I10 - Essential (primary) hypertension Status: Acute Assessment and Plan: Stable. (2) Bradycardia: Code(s): R00.1 - Bradycardia, unspecified Status: Acute Assessment and Plan: Stable.Probably due to medication including Metoprolol and Amiodarone. Stop both medication and monitor HR. Continue Eliquis in case he has PAF. May d/c home from cardiology standpoint and f/u with me in 1 week. Subjective Date/time seen: 07/27/24 07:52 Interval history: No chest pain or sob, or dizziness. Exam Const: General: cooperative, healthy appearing and comfortable Orientation/consciousness: oriented to person, oriented to place and oriented to time Resp: Auscultation: clear to auscultation bilaterally, no crackles, no rales, no rhonchi and no wheezes Cardio: Rate: bradycardic Rhythm: regular rhythm Heart sounds: no murmurs Peripheral pulses: dorsalis pedis present Neuro: General: oriented to person, oriented to place and oriented to time Extrem: Right lower extremity: no edema Left lower extremity: no edema Objective Data Vital Signs Vital Signs: Vital Signs - 24 hr 07/26/24 08:26 07/26/24 12:00 07/26/24 08:00 Temperature 96.8 F L Pulse Rate 54 L 47 L Respiratory Rate 20 Blood Pressure 142/65 H Pulse Oximetry 95 93 Oxygen Delivery Room Air Fraction of Inspired Oxygen 21 07/26/24 08:00 07/26/24 12:00 07/26/24 12:00 Temperature Pulse Rate 48 L 52 L 48 L Respiratory Rate Blood Pressure Pulse Oximetry Oxygen Delivery Room Air Room Air Fraction of Inspired Oxygen 07/26/24 16:00 07/26/24 20:00 07/26/24 20:00 Temperature Pulse Rate 48 L 48 L Respiratory Rate 20 Blood Pressure Pulse Oximetry 93 Oxygen Delivery Room Air Room Air Fraction of Inspired Oxygen 07/26/24 20:49 07/26/24 22:00 07/27/24 00:50 Temperature 97.9 F 97.7 F Pulse Rate 49 L 51 L 58 L Respiratory Rate 20 20 Blood Pressure 153/80 H 133/64 Pulse Oximetry 92 96 Oxygen Delivery Fraction of Inspired Oxygen 07/27/24 00:00 07/27/24 04:00 07/27/24 04:00 Temperature 98.1 F Pulse Rate 58 L 92 92 Respiratory Rate 20 17 17 Blood Pressure 144/63 H Pulse Oximetry 96 100 100 Oxygen Delivery Room Air Room Air Fraction of Inspired Oxygen 07/27/24 00:00 07/27/24 02:00 07/27/24 04:00 Temperature Pulse Rate 56 L 59 L 61 Respiratory Rate Blood Pressure Pulse Oximetry Oxygen Delivery Fraction of Inspired Oxygen 07/27/24 06:00 Temperature Pulse Rate 53 L Respiratory Rate Blood Pressure Pulse Oximetry Oxygen Delivery Fraction of Inspired Oxygen Intake/Output Intake/Output: Intake & Output 07/24/24 07/25/24 07/26/24 07/27/24 23:59 23:59 23:59 23:59 Intake Total 200 400 Output Total 700 1200 Balance -500 -800 Meds/Results Medications: Active Medications Generic Name Dose Route Start Last Admin Trade Name Freq PRN Reason Stop Dose Admin Apixaban 5 mg 07/26/24 09:00 07/26/24 21:41 Apixaban 5 Mg Tablet PO 5 mg Q12HR ANTONY Administration Dicyclomine HCl 10 mg 07/26/24 09:00 07/26/24 21:41 Dicyclomine Hcl 10 Mg Capsule PO 10 mg QID ANTONY Administration Furosemide 20 mg 07/26/24 09:00 07/26/24 17:05 Furosemide 20 Mg Tablet PO 20 mg BID ANTONY Administration Lisinopril 10 mg 07/26/24 09:00 07/26/24 09:09 Lisinopril 10 Mg Tablet PO 10 mg DAILY ANTONY Administration Loratadine 10 mg 07/26/24 09:00 07/26/24 09:09 Loratadine 10 Mg Tablet PO 08/25/24 08:59 10 mg DAILY ANTONY Administration Miscellaneous Information 0 each 07/26/24 00:01 Ramelteon Nonform Can Pt Bring From Home Also Clarify Dose XX 08/25/24 00:00 CLARIFY ANTONY Non-Formulary Medication 8 mg 07/25/24 23:55 Ramelteon PO 08/24/24 23:54 HS ANTONY Perflutren Lipid Microsphere 0 ml 0
[2024-07-27] MEDS: APIXABAN 5 MG TABLET PO (08:37)
[2024-07-27] MEDS: LORATADINE 10 MG TABLET PO (08:37)
[2024-07-27] MEDS: FUROSEMIDE 20 MG TABLET PO (08:38)
[2024-07-27] MEDS: DICYCLOMINE HCL 10 MG CAPSULE PO (08:38)
[2024-07-27] MEDS: lisinopriL 10 MG TABLET PO (08:38)
--- NOTE | 2024-07-27 13:08 | PM.DS ---
DS: Admitting Diagnosis Discharge Date 07/27/24 Admitting Diagnosis Sinus bradycardia DS: Discharge Diagnosis Discharge Diagnosis (1) Bradycardia: Code(s): R00.1 - Bradycardia, unspecified Status: Acute DS: Summary Hospital Course Hospital Course: Mr. Mendez, residing from [facility], presents with bradycardia/weakness. He has a past medical history prior tobacco abuse, COPD maintained on Spiriva and albuterol p.r.n.. Upon arrival to [place] [facility] he was found to be in sinus bradycardia. He maintained in the high 40s. No acute ischemia, troponin negative. Blood pressure 156/83, O2 sat 93% on room air. White blood cell count 9.0, INR 2.6, BUN 33, serum creatinine 1.2, BNP 98221, alkaline phosphatase 155. Chest x-ray demonstrating infiltrate versus atelectasis at the left lower lobe. It appears the patient was prescribed Eliquis, fexofenadine, furosemide, lisinopril, metoprolol, ramelteon, trazodone, amiodarone, acetaminophen all on 04/08/2024. There is however no indication chart documentation of the patient has atrial fibrillation. Cardiology was consulted, they evaluated and recommended holding Metoprolol and Amiodarone. HR has been on 50s and low 60s this admission, stable regardless. patient has remained stable and no symptoms and BP remained stable too. Cardiology will follow up in 1 week in clinic. Assessment and Plan (1) Bradycardia: Code(s): R00.1 - Bradycardia, unspecified Status: Acute (2) COPD (chronic obstructive pulmonary disease): Code(s): J44.9 - Chronic obstructive pulmonary disease, unspecified Status: Acute Plan ----- # 1st Degree AV Block 2/2 medication vs underlying cardiology pathology -stopped Metoprolol and Amiodarone per cardiology -Continue Eliquis 5 mg p.o. b.i.d. until Cardiology evaluation -F/u with cardiology in 1 week per their plan. continue home antihypertensives. F/u with PCP in 3-5 days Continue follow up with cardiology in 1 week as planned Time Spent with Patient Time attestation: Total time spent providing and/or coordinating discharge services: DS: Data Data Completed and Pending Labs on day of discharge: Labs from last 24 hours 07/27/24 05:04 WBC 8.9 RBC 3.87 L Hgb 13.0 L Hct 40.6 L MCV 104.9 H MCH 33.6 MCHC 32.0 RDW 15.0 H Plt Count 310 MPV 8.4 Sodium 141 Potassium 3.4 Chloride 100 Carbon Dioxide 30 Anion Gap 11 BUN 23 H D Creatinine 1.00 Estim Creat Clear Calc 41 Estimated GFR > 60 Glucose 105 Calcium 8.4 Total Bilirubin 1.9 H AST 30 ALT 17 Alkaline Phosphatase 162 H Total Protein 7.0 Albumin 3.5 Discharge Plan Discharge Attending physician on discharge: Eliud Beck Consulting providers: Nahum Monahan Discharging Clinician: Eliud Beck Anticipated Discharge Date/Time: 07/27/24 13:06 Patient Disposition: Home, Self-Care Activity: as tolerated Diet: as tolerated Patient Instructions: Antibiotic Form, Apixaban (By mouth), Heart Failure (DC), Bradycardia (DC), Safe Use of Anticoagulants (DC) Stand Alone Forms: General Discharge Information Follow-up/Referrals: Domenico Ward DO [Primary Care Provider] - (F/u with PCP in 3-5 days ) Nahum Monahan DO [Physician] - (F/u with cardiology in 1 week as instructed ) Discharge Medications: Continued trazodone 50 mg tablet 50 mg PO HS lisinopril 10 mg tablet 10 mg PO DAILY furosemide 20 mg tablet 20 mg PO BID ramelteon 8 mg tablet 8 mg PO HS Eliquis 5 mg tablet 5 mg PO BID acetaminophen 325 mg Tablet 650 mg PO Q8H fexofenadine 60 mg Tablet 30 mg PO DAILY dicyclomine 10 mg capsule 10 mg PO QID Discontinued metoprolol succinate 100 mg tablet extended release 24 hr 100 mg PO HS amiodarone 400 mg tablet 400 mg PO BID Date of admission: 07/26/24 09:13 Primary Care Provider: Domenico Ward Admit
--- NOTE | 2024-07-27 16:27 | PCSTNOTE ---
Please refer to the Bedside Swallow Evaluation in the EMR. Please note, silent aspiration cannot be ruled out at bedside. The above pt, admitted with a dx of bradycardia/weakness. from a [facility], was seen for a swallow evaluation at bedside. Medical history includes COPD, AAA, and head injury. Pt denies difficulty swallowing but family states pt excessively chews only to spit the contents out.? They deny coughing or choking during eating or drinking. Pt was somewhat resistant to the evaluation as he was being discharged soon and didn?t want to have to urinate on the way home. Oral mucosa is normal; natural dentition is in fair condition with some missing (back) teeth; Oral peripheral exam revealed lingual and labial structures to be normal. Pt was positioned upright in the bed for an optimal feeding position. She was tested with an ice chip, ? tsp ?pudding, ? tsp applesauce. Pt refused all other trials including water sips and cracker. With the small amounts the pt was tested with the oral stages appeared WNL. No oral leakage or pocketing was noted. During the pharyngeal stage, swallow reflex appeared prompt & laryngeal elevation adequate. No overt s/s of aspiration were exhibited; however, silent aspiration cannot be ruled out at bedside and the test was extremely limited. Diet recommendation at this time is questionable as pt did not eat solids or thin liquids beyond an ice chip.? Per EMR pt is being discharged; therefore, follow-up at the [facility] is suggested with foods pt would agree to eat. ?
== END 2024-07-27 15:47 | disposition home or self-care (01) | DRG 310 ==
LOC: ANHED 20:11 → ANHIMU 20:27
PROVIDERS: General Practice; Internal Medicine; Admitting Provider General Practice; Emergency Provider Emergency Medicine; PCP Internal Medicine; Visit Provider Internal Medicine
DX: R00.1 Bradycardia, unspecified (principal); I44.0 Atrioventricular block, first degree; T44.7X5A Adverse effect of beta-adrenoreceptor antagonists, initial encounter; T46.2X5A Adverse effect of other antidysrhythmic drugs, initial encounter; I10 Essential (primary) hypertension; J44.9 Chronic obstructive pulmonary disease, unspecified; K58.9 Irritable bowel syndrome, unspecified; M19.90 Unspecified osteoarthritis, unspecified site; Z87.891 Personal history of nicotine dependence; Z79.01 Long term (current) use of anticoagulants
CPT/HCPCS: 36415; 71045; 80053; 82948; 83735; 83880; 84484; 85025; 85027; 85610; 85730; 92610; 93005; 93306; 97161; 99285; A9270; G0378